=== PATIENT | male | born 1945 | race Asian ===

== ENCOUNTER 2022-12-29 12:09 | Emergency (ER) | payer OTHER ==
[~2022-12-29] VITALS: Ht 177.8 cm; Wt 81.6 kg
[2022-12-29 12:10] VITALS: BP_SYST 206
--- NOTE | 2022-12-29 12:15 | NUR ---
FROM HOME FOR LOW BS 42 DEXTROSE GIVEN NOW BS 93 SLIGHTLY ALTERED
--- NOTE | 2022-12-29 12:52 | NUR ---
FOOD TRAY GIVEN TO PT AT THIS TIME
[2022-12-29 12:59] LABS: BASOPHILS % (AUTO) 0.1 % (0.0-2.0); EOSINOPHILS % (AUTO) 0.2 % (0.0-4.0); HEMATOCRIT 43.2 % (36-54); HEMOGLOBIN 14.3 g/dL (14.0-18.0); LYMPHOCYTES # (AUTO) 0.7 K/uL (1.0-5.5); MEAN CORPUSCULAR HEMOGLOBIN 27 pg (27-31); MEAN CORPUSCULAR HGB CONC 33 % (32-36); MEAN CORPUSCULAR VOLUME 81 fL (79.0-98.0); MONOCYTES # (AUTO) 0.5 K/uL (0.0-1.0); MONOCYTES % (AUTO) 6.5 % (1.7-9.3); NEUTROPHILS # (AUTO) 6.1 K/uL (1.8-7.7); NEUTROPHILS % (AUTO) 84.2 % (40.0-70.0); PLATELET COUNT (AUTO) 192 K/uL (130-430); RED BLOOD CELL COUNT(AUTO) 5.34 MIL/uL (4.2-6.2); RED CELL DISTRIBUTION WIDTH 14.6 % (9.0-15.0); WHITE BLOOD COUNT (AUTO) 7.3 K/uL (4.8-10.8)
[2022-12-29 13:14] LABS: ANION GAP 9 (5-15); CALCIUM 10.1 mg/dL (8.4-11.0); CHLORIDE 93 mmol/L (98-107); GLUCOSE 109 mg/dL (70-99); UREA NITROGEN, BLOOD 54 mg/dL (8-21)
[2022-12-29 13:20] LABS: ALANINE AMINOTRANSFERASE 32 U/L (12-78); ALBUMIN 3.6 g/dL (3.4-4.8); ASPARTATE AMINOTRANSFERASE 31 U/L (10-37); TOTAL BILIRUBIN 0.4 mg/dL (0.0-1.0)
--- NOTE | 2022-12-29 13:30 | NUR ---
POTASSIUM 2.7 ER MD AWARE
[2022-12-29] MEDS ORDERED: POTA-197 PO (13:43)
[2022-12-29] MEDS ORDERED: POTASSIUM CHLORIDE 20 MEQ/PKT PACKET PO ONE (13:45)
--- NOTE | 2022-12-29 14:32 | NUR ---
Patient given written and verbal discharge instructions and verbalizes understanding. ER MD discussed with patient the results and treatment provided. Patient in stable condition. Rx of given. Patient educated on pain management and to follow up with PMD. Pain Scale []. Opportunity for questions provided and answered. Medication side effect fact sheet provided.
== END 2022-12-29 14:31 | disposition home or self-care (01) ==
LOC: SED 12:09
DX: E11.65 Type 2 diabetes mellitus with hyperglycemia (principal); E16.2 Hypoglycemia, unspecified; I10 Essential (primary) hypertension; Z79.899 Other long term (current) drug therapy
CPT/HCPCS: 36415; 80053; 85025; 99283

== ENCOUNTER 2023-03-28 13:15 | Emergency (ER) | payer OTHER ==
[~2023-03-28] VITALS: Ht 177.8 cm; Wt 81.6 kg
[2023-03-28 13:15] VITALS: BP_SYST 139
[~2023-03-28 13:15] MED LIST: POTA-197 PO
--- NOTE | 2023-03-28 13:15 | NUR ---
Placed in room 7 . Placed on director of cardiac cath lab, blood pressure machine and pulse oximeter. To gown for exam. Side rails up.
--- NOTE | 2023-03-28 13:16 | NUR ---
Patient BIB from home by spouse and kids. Chief Complaint: extreme disorientation with seizure like presentation. Blood sugar upon accucheck is 29. RN and Dr. Sharpe at bedside.
--- NOTE | 2023-03-28 13:17 | NUR ---
ER DR. BARFIELD EXAMINING PT
[2023-03-28] MEDS ORDERED: DEXTROSE 50% JECT 50 ML DISP.SYRIN ONE ×2 (13:22→13:25)
[2023-03-28] MEDS ORDERED: NACL 0.9% 1,000 ML IV ONE (13:30)
[2023-03-28] MEDS ORDERED: DEXTROSE 50% JECT 50 ML DISP.SYRIN IVP ONE (13:45)
[2023-03-28 13:50] LABS: BASOPHILS % (AUTO) 0.5 % (0.0-2.0); EOSINOPHILS # (AUTO) 0.1 K/uL (0.0-0.4); EOSINOPHILS % (AUTO) 1.4 % (0.0-4.0); HEMATOCRIT 36.9 % (36-54); HEMOGLOBIN 12.1 g/dL (14.0-18.0); LYMPHOCYTES # (AUTO) 0.8 K/uL (1.0-5.5); LYMPHOCYTES % (AUTO) 8.5 % (20.5-51.5); MEAN CORPUSCULAR HEMOGLOBIN 27 pg (27-31); MEAN CORPUSCULAR HGB CONC 33 % (32-36); MEAN CORPUSCULAR VOLUME 82 fL (79.0-98.0); MONOCYTES # (AUTO) 0.6 K/uL (0.0-1.0); MONOCYTES % (AUTO) 6.3 % (1.7-9.3); NEUTROPHILS # (AUTO) 7.4 K/uL (1.8-7.7); NEUTROPHILS % (AUTO) 83.3 % (40.0-70.0); PLATELET COUNT (AUTO) 192 K/uL (130-430); RED CELL DISTRIBUTION WIDTH 14.2 % (9.0-15.0); WHITE BLOOD COUNT (AUTO) 8.8 K/uL (4.8-10.8)
--- NOTE | 2023-03-28 13:52 | NUR ---
Patient taken to Radiology now
[2023-03-28 14:16] LABS: ALANINE AMINOTRANSFERASE 31 U/L (12-78); ALBUMIN 3.2 g/dL (3.4-4.8); ANION GAP 10 (5-15); ASPARTATE AMINOTRANSFERASE 23 U/L (10-37); CHLORIDE 105 mmol/L (98-107); CREATININE 1.65 mg/dL (0.55-1.30); GLUCOSE 174 mg/dL (70-99); TOTAL BILIRUBIN 0.3 mg/dL (0.0-1.0); UREA NITROGEN, BLOOD 50 mg/dL (8-21)
[2023-03-28 14:22] LABS: ALCOHOL, BLOOD < 3 mg/dL (<10)
[2023-03-28 14:29] LABS: PROTHROMBIN TIME 9.9 SECS (9.5-12.5)
--- NOTE | 2023-03-28 15:13 | NUR ---
BS 70
--- NOTE | 2023-03-28 15:15 | NUR ---
Patient given orange juice and a sandwich. Will recheck BS in 30m.
[2023-03-28] MEDS ORDERED: KCL 20 mEq in 100 mL (PREMIX) 100 ML IV ONE (15:30)
[2023-03-28] MEDS ORDERED: POTASSIUM CHLORIDE 20 MEQ TAB.PRT.SR PO ONE ×2 (15:30→15:45)
--- NOTE | 2023-03-28 16:15 | NUR ---
BS 176
[2023-03-28 16:58] VITALS: BP_SYST 158
--- NOTE | 2023-03-28 17:08 | NUR ---
Interventions were successful. Patient A&ox4 and stable. Patient given written and verbal discharge instructions and verbalizes understanding. ER MD Baker discussed with patient the results and treatment provided. Patient in stable condition. ID arm band removed. IV catheter removed intact and dressing applied, no active bleeding. Rx of given. Patient educated on Diabetes management and to follow up with PMD. Opportunity for questions provided and answered. Patient discharged walking out with .
[2023-03-28 17:23] LABS: BARBITURATE, URINE NEGATIVE (NEG <=200); BENZODIAZEPINE, URINE NEGATIVE (NEG <=150); CANNABINOID, URINE NEGATIVE (NEG <=50); COCAINE, URINE NEGATIVE (NEG <=150); METHAMPHETAMINES SCREEN,URINE NEGATIVE (NEG <=500); OPIATE, URINE NEGATIVE (NEG <=100); PHENCYCLIDINE SCREEN,URINE NEGATIVE (NEG <=25); URINE AMPHETAMINE NEGATIVE (NEG <=500); URINE METHADONE NEGATIVE (NEG <=200); URINE OXYCODONE SCREEN NEGATIVE (NEG <=100); URINE PROPOXYPHENE SCREEN NEGATIVE (NEG <=300)
[2023-03-28 17:24] LABS: UR TRICYCLIC ANTIDEPRESSANTS NEGATIVE (NEG <=300)
[2023-03-28 18:43] LABS: BILIRUBIN,URINE NEGATIVE (NEGATIVE); CLARITY/URINE CLEAR (CLEAR); COLOR,URINE YELLOW (YELLOW); GLUCOSE,URINE 1+ (NEGATIVE); KETONES,URINE NEGATIVE (NEGATIVE); LEUKOCYTE ESTERASE ,URINE NEGATIVE (NEGATIVE); NITRITE, URINE NEGATIVE (NEGATIVE); PROTEIN URINE 2+ (NEGATIVE); UROBILINOGEN,URINE 0.2 (0.2-1.0)
[2023-03-28 18:45] LABS: BLOOD, URINE TRACE (NEGATIVE)
[2023-03-28 18:47] LABS: RBC,URINE 0-3 /HPF (0-3)
[2023-03-28 18:48] LABS: BACTERIA,URINE None Seen /HPF (None Seen); MUCUS,URINE 1+ /LPF (None Seen); WBC,URINE 0-3 /HPF (0-3)
== END 2023-03-28 17:08 | disposition home or self-care (01) ==
LOC: SED 13:15
DX: E11.649 Type 2 diabetes mellitus with hypoglycemia without coma (principal); E78.5 Hyperlipidemia, unspecified; R42 Dizziness and giddiness; I10 Essential (primary) hypertension; Z79.899 Other long term (current) drug therapy
CPT/HCPCS: 99285; 96360; 70450; 71045; 80307; 80053; 85025; 85610; 85730; 84484; 36415; 93005; 76376; 81000; 82962; G0482; J7030

== ENCOUNTER 2024-02-23 08:09 | Emergency (ER) | payer OTHER ==
[~2024-02-23] VITALS: Ht 165.1 cm; Wt 68.0 kg
[2024-02-23 08:27] VITALS: BP_SYST 124; PULSE 71; RESP 16; TEMP 97.7; O2SAT 96
[2024-02-23] MEDS: LIDOCAINE PATCH 5% 1 EA TP ONE (09:12)
[2024-02-23] MEDS: IBUPROFEN 600 MG TABLET PO ONE (09:13)
[2024-02-23] MEDS ORDERED: DICL20GE TP (10:31)
[2024-02-23] MEDS ORDERED: HYDR-3917 PO (10:31)
[2024-02-23] MEDS ORDERED: IBUP-1970 PO (10:31)
== END 2024-02-23 10:40 | disposition home or self-care (01) ==
LOC: SED 08:09
DX: S22.42XA Multiple fractures of ribs, left side, initial encounter for closed fracture (principal); E11.9 Type 2 diabetes mellitus without complications; I10 Essential (primary) hypertension; E78.5 Hyperlipidemia, unspecified; Z79.899 Other long term (current) drug therapy; W18.2XXA Fall in (into) shower or empty bathtub, initial encounter; Y93.89 Activity, other specified; Y92.89 Other specified places as the place of occurrence of the external cause; Y99.8 Other external cause status
CPT/HCPCS: 71100; 99283

== ENCOUNTER 2024-04-27 19:36 | Emergency (ER) | payer OTHER ==
[~2024-04-27] VITALS: Ht 165.1 cm; Wt 68.0 kg
[~2024-04-27 19:36] MED LIST changes: +DICL20GE TP; +HYDR-3917 PO; +IBUP-1970 PO; +IBUP-2018 PO
[2024-04-27 20:00] VITALS: BP_SYST 136; PULSE 81; RESP 19; TEMP 98.2; O2SAT 96
[2024-04-27] MEDS ORDERED: cefTRIAXone 1 GM in LIDOCAINE 1%, 20 ML MDV 2.1 ML IM ONE (22:45)
[2024-04-27] MEDS ORDERED: NAPR-1172 PO (22:47)
[2024-04-27] MEDS ORDERED: COLC0.6T67 PO (22:47)
[2024-04-27] MEDS ORDERED: ALLO100T91 PO (22:47)
[2024-04-27] MEDS ORDERED: COLCHICINE 0.6 MG TABLET ONE (22:56)
[2024-04-27] MEDS: COLCHICINE 0.6 MG TABLET PO ONE (22:58)
[2024-04-27 23:08] VITALS: BP_SYST 136; PULSE 81; RESP 19; TEMP 98.2; O2SAT 96
== END 2024-04-27 23:08 | disposition home or self-care (01) ==
LOC: SED 19:36
DX: M10.042 Idiopathic gout, left hand (principal); E11.9 Type 2 diabetes mellitus without complications; I10 Essential (primary) hypertension; E78.5 Hyperlipidemia, unspecified; Z96.651 Presence of right artificial knee joint; Z79.899 Other long term (current) drug therapy; Z79.2 Long term (current) use of antibiotics
CPT/HCPCS: 99283